=== PATIENT | female | born 1990 | race American Indian/Alaskan Native ===

== ENCOUNTER 2017-01-14 19:21 | Emergency (ER) | payer MEDICAID ==
[2017-01-14] MEDS ORDERED: Sodium Chloride 0.9% 1,000 ML IV ONE (19:46)
[2017-01-14 20:00] LABS: HCG,QUALITATIVE URINE POSITIVE (NEGATIVE); SQUAMOUS EPITHIAL 1 /hpf (0-5); URINE BACTERIA OCC (<OCC); URINE BILIRUBIN NEGATIVE (NEGATIVE); URINE BLOOD NEGATIVE (NEGATIVE); URINE CLARITY Clear (Clear); URINE COLOR Yellow (YELLOW); URINE GLUCOSE (UA) NORMAL (Normal); URINE LEUKOCYTE ESTERASE NEG Leu/uL (Negative); URINE NITRATE NEGATIVE (NEGATIVE); URINE PROTEIN NEGATIVE (NEGATIVE); URINE UROBILINOGEN NORMAL mg/dL (0.2-1.0)
[2017-01-14 20:27] LABS: BASO # 0.1 K/uL (0.0-0.2); BASO % 0.4 % (0.0-2.0); EOS # 0.2 K/uL (0.0-0.7); EOS % 1.4 % (0.0-4.0); HEMOGLOBIN 10.3 g/dL (11.0-16.0); LYMPH # 2.6 K/uL (1.0-4.3); LYMPH % 17.6 % (20.0-40.0); MEAN CELL VOLUME 74.6 fL (81.0-99.0); MEAN CORPUSCULAR HGB CONC 30.8 g/dL (33.0-37.0); MEAN PLATELET VOLUME 7.5 fL (7.2-11.7); MONO # 1.2 K/uL (0.0-0.8); NEUT # 10.7 K/uL (1.8-7.0); NEUT % 72.6 % (50.0-75.0); NRBC % 0.1 % (0.0-2.0); RBC 4.5 Mil/uL (3.80-5.20); RED CELL DISTRIBUTION WIDTH 21.3 % (11.5-14.5); WHITE BLOOD COUNT 14.8 K/uL (4.8-10.8)
[2017-01-14 20:31] LABS: ALBUMIN 3.7 g/dL (3.5-5.0)
[2017-01-14 20:33] LABS: GFR AFRICAN-AMERICAN > 60; GFR NON-AFRICAN AMERICAN > 60
[2017-01-14 20:34] LABS: ALT/SGPT 14 U/L (9-52); AST/SGOT 23 U/L (14-36); BLOOD UREA NITROGEN 7 mg/dL (7-17)
[2017-01-14 20:35] LABS: CALCIUM 9.1 mg/dl (8.6-10.4)
--- NOTE | 2017-01-14 21:01 | C.PDOC ---
History Of Present Illness A 26 y/o F who is OB1 and 13 weeks , c/o foul smelling vaginal discharge for 2 days. Denies fever, chills, diarrhea, vaginal bleeding, dysuria , hematuria, or any other complaints. Time Seen by Provider: 01/14/17 19:42 Chief Complaint (Nursing): Abdominal Pain History Per: Patient History/Exam Limitations: no limitations Onset/Duration Of Symptoms: Days Current Symptoms Are (Timing): Still Present Severity: Mild Radiation Of Pain To:: None Associated Symptoms: denies: Fever, Chills, Diarrhea Recent travel outside of the [place]: No Additional History Per: Patient Abnormal Vaginal Bleeding: No : 3 Para: 1 Miscarriage: 1 Past Medical History Reviewed: Historical Data, Nursing Documentation, Vital Signs Vital Signs: Last Vital Signs Temp 98.2 F 01/14/17 19:33 Pulse 97 H 01/14/17 19:33 Resp 20 01/14/17 19:33 BP 104/66 01/14/17 19:33 Pulse Ox 100 01/14/17 22:26 Surgical History: Appendectomy Family History: States: Unknown Family Hx - Social History Hx Tobacco Use: No Hx Alcohol Use: No Hx Substance Use: No - Immunization History Hx Tetanus Toxoid Vaccination: Yes Hx Influenza Vaccination: No Hx Pneumococcal Vaccination: No Review Of Systems Except As Marked, All Systems Reviewed And Found Negative. Constitutional: Positive for: Other (13 weeks ). Negative for: Fever, Chills Gastrointestinal: Negative for: Diarrhea Genitourinary: Positive for: Vaginal Discharge (Foul smelling). Negative for: Dysuria, Hematuria, Vaginal Bleeding Physical Exam - Physical Exam Appears: Non-toxic, No Acute Distress, Other (Early ) Skin: Warm, Dry Head: Atraumatic, Normacephalic Eye(s): bilateral: Normal Inspection Oral Mucosa: Moist Throat: Normal, No Exudate Chest: Symmetrical Cardiovascular: Rhythm Regular Respiratory: Normal Breath Sounds, No Rales, No Rhonchi, No Wheezing Gastrointestinal/Abdominal: Soft, No Tenderness Back: No CVA Tenderness Neurological/Psych: Oriented x3, Normal Speech, Normal Cognition Gait: Steady ED Course And Treatment - Laboratory Results Result Diagrams: 01/14/17 20:13 01/14/17 20:13 Lab Interpretation: Normal (ua neg. QUant 113,580, O+) O2 Sat by Pulse Oximetry: 100 (RA) Pulse Ox Interpretation: Normal - CT Scan/US US preg, Uterus Other Rad Studies (CT/US): Interpreted By Me, Read By Radiologist CT/US Interpretation: EXAM: US Uterus, Limited. CLINICAL HISTORY: 26 years old, female; Pain; complicated by abdominal or pelvic pain; Left lower quadrant;. Second trimester; Gestational age or lmp: 10-13-2016; ; Prior surgery; Surgery date: 6+. months; Surgery type: Appendix removed; Additional info: 13 wks, pelvic pain and d/c. TECHNIQUE: Real-time ultrasound of the maternal uterus (limited) with image documentation. COMPARISON: No relevant prior studies available. FINDINGS: Fetus: Single live intrauterine gestation. Estimated gestational age of 14 weeks 1 day by. measurements. Estimated weight of 84 g. No gross anomaly is appreciated. Position: Vertex. Heart rate: heart rate of 167 beats per minute. Placenta: Anterior placenta. No placenta previa or abruption. Amniotic fluid: Normal. Cervix: No cervical dilatation or effacement. Adnexa: RIGHT ovary: Normal. LEFT ovary: 2.1 x 2.2 x 2.2 cm anechoic lesion. No adnexal. masses. Free fluid: No significant free fluid. Other findings: BPD: 2.7 cm, correlating with 14 weeks 5 days. HC: 10.2 cm, correlating with 14. weeks 6 days. AC: 7.4 cm, correlating with 13 weeks 6 days. FL: 1.2 cm, correlating with 13 weeks. 4 days. IMPRESSION: 1. Single live intrauterine gestation. 2. LEFT ovarian cyst. 3. Incidental/non-acute findings are described above. Progress Note: pt declines pelvic exam in ED prefers to f/u with her OBGYN tomorrow for pelvic exam. Reevaluation Time: 22:27 Reassessment Condition: Improved Medical Decision Making Medical Decision Making: Impression: A 26 y/o F who is [id number] and 13 weeks , c/o foul smelling vaginal discharge for 2 days. Plans: -US Transvag -IV fluids 2230: normal [id number] Disposition Doctor Will See Patient In The: Office Counseled Patient/Family Regarding: Studies Performed, Diagnosis - Disposition Disposition: HOME/ ROUTINE Disposition Time: 22:28 Condition: GOOD - Clinical Impression Clinical Impression: - Scribe Statement The provider has reviewed the documentation as recorded by the Scribe Genny jon All medical record entries made by the Mistyibe were at my direction and personally dictated by me. I have reviewed the chart and agree that the record accurately reflects my personal performance of the history, physical exam, medical decision making, and the department course for this patient. I have also personally directed, reviewed, and agree with the discharge instructions and disposition.
--- NOTE | 2017-01-14 22:22 | US ---
EXAM: US Uterus, Limited CLINICAL HISTORY: 26 years old, female; Pain; complicated by abdominal or pelvic pain; Left lower quadrant; Second trimester; Gestational age or lmp: 10-13-2016; ; Prior surgery; Surgery date: 6+ months; Surgery type: Appendix removed; Additional info: 13 wks, pelvic pain and d/c TECHNIQUE: Real-time ultrasound of the maternal uterus (limited) with image documentation. COMPARISON: No relevant prior studies available. FINDINGS: Fetus: Single live intrauterine gestation. Estimated gestational age of 14 weeks 1 day by measurements. Estimated weight of 84 g. No gross anomaly is appreciated. Position: Vertex. Heart rate: heart rate of 167 beats per minute. Placenta: Anterior placenta. No placenta previa or abruption. Amniotic fluid: Normal. Cervix: No cervical dilatation or effacement. Adnexa: RIGHT ovary: Normal. LEFT ovary: 2.1 x 2.2 x 2.2 cm anechoic lesion. No adnexal masses. Free fluid: No significant free fluid. Other findings: BPD: 2.7 cm, correlating with 14 weeks 5 days. HC: 10.2 cm, correlating with 14 weeks 6 days. AC: 7.4 cm, correlating with 13 weeks 6 days. FL: 1.2 cm, correlating with 13 weeks 4 days. IMPRESSION: 1. Single live intrauterine gestation. 2. LEFT ovarian cyst. 3. Incidental/non-acute findings are described above.
[2017-01-14 22:46] VITALS: BP 110/70; PULSE 70; RESP 14; TEMP 98; O2SAT 98
== END 2017-01-14 22:46 | disposition home or self-care (01) ==
LOC: C.ER 19:21
DX: O26.892 Other specified pregnancy related conditions, second trimester (principal); Z3A.14 14 weeks gestation of pregnancy

== ENCOUNTER 2018-01-13 01:55 | Emergency (ER) | payer MEDICAID, OTHER ==
[2018-01-13 02:08] VITALS: O2SAT 100
[2018-01-13 02:55] LABS: HCG,QUALITATIVE URINE NEGATIVE (NEGATIVE)
[2018-01-13 03:06] LABS: SQUAMOUS EPITHIAL 6 /hpf (0-5); URINE BACTERIA RARE (<OCC); URINE BILIRUBIN NEGATIVE (NEGATIVE); URINE BLOOD NEGATIVE (NEGATIVE); URINE CLARITY Hazy (Clear); URINE COLOR Yellow (YELLOW); URINE GLUCOSE (UA) NORMAL (Normal); URINE LEUKOCYTE ESTERASE 3+ Leu/uL (Negative); URINE PROTEIN NEGATIVE (NEGATIVE)
--- NOTE | 2018-01-13 03:28 | C.PDOC ---
History Of Present Illness Pt presents to ER with c/o of vaginal discharge and itching x 3 days, but developed dysuria today which prompted this visit. Denies fever, abdominal pain , dyspareunia. Pt is sexually active with protection Time Seen by Provider: 01/13/18 02:35 Chief Complaint (Nursing): Female Genitourinary History Per: Patient History/Exam Limitations: no limitations Severity: None Associated Symptoms: denies: Fever, Nausea, Vomiting Past Medical History Vital Signs: Last Vital Signs Temp 98.9 F 01/13/18 04:09 Pulse 62 01/13/18 04:09 Resp 20 01/13/18 04:09 BP 119/74 01/13/18 04:09 Pulse Ox 100 01/13/18 04:09 - Medical History PMH: No Chronic Diseases Surgical History: Appendectomy Family History: States: Unknown Family Hx - Social History Hx Tobacco Use: No Hx Alcohol Use: No Hx Substance Use: No - Immunization History Hx Tetanus Toxoid Vaccination: No Hx Influenza Vaccination: No Hx Pneumococcal Vaccination: No Review Of Systems Constitutional: Negative for: Fever, Chills Gastrointestinal: Negative for: Nausea, Vomiting, Abdominal Pain Genitourinary: Positive for: Dysuria, Vaginal Discharge. Negative for: Frequency, Hematuria, Vaginal Bleeding, Pelvic Pain, Rash Musculoskeletal: Negative for: Back Pain Physical Exam - Physical Exam Appears: Well, Non-toxic Skin: Normal Color Eye(s): bilateral: Normal Inspection, PERRL Gastrointestinal/Abdominal: Normal Exam, Soft, No Tenderness Pelvic: Normal External Exam, No Normal Speculum Exam, Normal Bimanual Exam, Vaginal Discharge (thick white), No Cervical Motion Tenderness, No Adnexal Tenderness Neurological/Psych: Oriented x3 ED Course And Treatment O2 Sat by Pulse Oximetry: 100 Pulse Ox Interpretation: Normal Progress Note: Pt with 3+ leuk esterase on UA, macrobid PO ordered. Urine cx sent. Pt advised follow up and return precautions were discussed and pt understood and agreed to plan Disposition Counseled Patient/Family Regarding: Diagnosis, Need For Followup - Disposition Referrals: [facility] [Outside] Disposition: HOME/ ROUTINE Disposition Time: 03:25 Condition: STABLE Additional Instructions: Increase PO fluids Take medications as prescribed Return to ER if worse Prescriptions: Fluconazole [Diflucan] 150 mg PO ONCE #1 tab Nitrofurantoin Macrocrystals [Macrobid] 1 cap PO BID #14 cap Phenazopyridine HCl [Pyridium] 100 mg PO TID #6 tab Instructions: Urinary Tract Infection, Adult (DC), Vaginal Yeast Infection (DC) Forms: Social 2 Step (Sami) - Clinical Impression Clinical Impression: Candidal vulvovaginitis, UTI (urinary tract infection)
[2018-01-13 04:13] VITALS: BP 119/74; PULSE 62; RESP 20; TEMP 98.9
== END 2018-01-13 04:09 | disposition home or self-care (01) ==
LOC: C.ER 01:55
DX: B37.3 Candidiasis of vulva and vagina (principal); N39.0 Urinary tract infection, site not specified